=== PATIENT | male | born 1980 | race Caucasian/White ===

== ENCOUNTER 2019-01-27 10:46 | Outpatient (CLI) | payer BC ==
--- NOTE | 2019-01-27 11:09 | RAD ---
RIGHT WRIST 3 VIEWS: HISTORY: Right wrist pain, injury FINDINGS: No acute fracture or dislocation is identified. If symptoms do not improve, a follow-up exam should be obtained in 7-10 days.
== END 2019-01-27 10:47 | disposition home or self-care (01) ==
LOC: SCSRAD 10:46
PROVIDERS: ATTEND Family Medicine
DX: M25.531 Pain in right wrist (principal)